=== PATIENT | male | born 1965 | race Caucasian/White ===

== ENCOUNTER 2020-02-27 13:06 | Emergency (ER) | payer MEDICARE, OTHER, SELFPAY ==
--- NOTE | ~2020-02-27 | XR_ITS ---
EXAMINATION: XR chest 2V DATE: 02/27/2020 13:48 INDICATION: Shortness of breath. TECHNIQUE: Frontal and lateral views of the chest were obtained on 3 radiographs. COMPARISON: Chest single view 06/20/2011 FINDINGS: The chest demonstrates clear lungs without pneumonia, pleural effusion, or pneumothorax. Th e heart size is normal. There are changes of anterior fusion procedure in cervical spine. IMPRESSION: 1. No acute cardiopulmonary disease. Reviewed, dictated and finalized at location A.
[2020-02-27 13:18] VITALS: BP 156/57; PULSE 59; PULSE 70; RESP 12; TEMP 37.1; O2SAT 97
--- NOTE | 2020-02-27 13:19 | ECG_ITS ---
Measurements Intervals [place] Rate: 68 P: 64 TN: 190 QRS: -38 QRSD: 154 T: 22 QT: 416 QTc: 442 Interpretive Statements SINUS RHYTHM LEFT AXIS DEVIATION RIGHT BUNDLE BRANCH BLOCK ABNORMAL ECG Electronically Signed On 02-27-2020 13:34:28 CDT by Aden Lanza D.O.
--- NOTE | 2020-02-27 13:23 | ED.SOB ---
HPI - SOB/Dyspnea General Chief Complaint: Shortness of Breath/Dyspnea Stated Complaint: SOB Time Seen by Provider: 02/27/20 13:08 Source: RN notes reviewed History of Present Illness HPI Narrative: Patient presents emergency department from home for shortness of breath. Patient states symptoms began approximately 3 weeks ago with shortness of breath. He states that he had been at [facility] last week and had a work-up that was negative that time he was to follow-up with his PCP today. Patient states he got to his PCPs office today and had placed a 95 mask on his face when he began to again feel short of breath. He states that the mask removed he is feeling better at this time. He denies any fevers or chills chest pain abdominal pain nausea vomiting or any other symptoms Related Data Home Medications Medication Instructions Recorded Confirmed amlodipine 02/27/20 atorvastatin 02/27/20 eletriptan mg 02/27/20 epinephrine 02/27/20 fexofenadine mg 02/27/20 furosemide 02/27/20 losartan 02/27/20 metformin mg PO 02/27/20 onabotulinumtoxinA 200 unit IM ONCE 02/27/20 02/27/20 pantoprazole PO 02/27/20 potassium chloride meq PO 02/27/20 sildenafil 50 mg PO DAILY PRN 02/27/20 02/27/20 sumatriptan succinate 4 mg SUBCUT ONCE 02/27/20 02/27/20 sumatriptan succinate SUBCUT 02/27/20 tizanidine mg 02/27/20 Allergies Allergy/AdvReac Type Severity Reaction Status Date / Time lactose Allergy Abdominal Verified 02/27/20 13:33 Pain sulfamethoxazole Allergy Unknown Verified 02/27/20 13:33 [From Bactrim] trimethoprim [From Bactrim] Allergy Unknown Verified 02/27/20 13:33 Review of Systems Review of Systems: Narrative: Gen.: Denies fevers or chills Eyes: Denies eye pain or visual change ENT: Denies congestion Respiratory: See HPI CV: Denies chest pain or palpitations GI: Denies abdominal pain nausea, emesis or diarrhea Musculoskeletal: Denies back pain or muscle pain Neuro: Denies numbness, tingling, weakness or focal weakness Skin: Denies rash Except as documented, all other systems reviewed and negative [facility] Past Medical History Medical History (Updated 02/27/20 @ 17:29 by John Olivarez DO) Hypertension Social History Social History (Updated 02/27/20 @ 13:24 by John Olivarez DO) Smoking status: Never smoker Gender identity (if verbalized by the patient): Male Exam Narrative: Exam Narrative: APPEARANCE: No acute distress, nontoxic, resting in bed EYES: EOMI HEENT: Normocephalic, atraumatic, OMM RESPIRATORY: No respiratory distress Clear to auscultation bilaterally with no rhonchi wheezing or rales. CARDIOVASCULAR: Regular rate and rhythm without murmurs rubs or gallops. ABDOMINAL: Soft, nontender, nondistended, no rebound or guarding MUSCULOSKELETAl: Moves all extremities. No clubbing, cyanosis or edema. NEURO: Awake and alert. Following commands, speech normal, no focal deficits SKIN:: Warm, dry. No rashes lesions or abrasions PSYCHIATRIC: Normal affect/mood, Course Course Emergency Course: Patient has had no shortness of breath while in ED Discussed with patient results of workup and diagnosis. Discussed need for follow-up with primary care, proper use of medication, and reasons to return to the emergency department. Patient understands and agrees to current treatment plan Vital Signs Vital signs: Vital Signs Temperature 98.7 F 02/27/20 13:18 Pulse Rate 70 02/27/20 13:18 Respiratory Rate 12 02/27/20 13:18 Blood Pressure 156/57 H 02/27/20 13:18 Pulse Oximetry 97 02/27/20 13:18 Temperature 98.7 F 02/27/20 13:18 Pulse Rate 59 L 02/27/20 15:34 Respiratory Rate 13 02/27/20 15:34 Blood Pressure 152/62 H 02/27/20 15:34 Pulse Oximetry 98 02/27/20 15:34 MDM - SOB/Dyspnea MDM Narrative Medical decision making narrative: Patient has dyspnea of unclear etiology. No wheezing on clinical exam. Low risk well score, PE is felt unlikely. No a
[2020-02-27 13:45] LABS: Basophils Absolute Auto 0.1 K/mm3 (0.0-0.1); Basophils Percent Auto 1.6 % (0.2-1.2); Eosinophils Absolute Auto 0.1 K/mm3 (0-0.3); Eosinophils Percent Auto 2.1 % (0-4.4); Hematocrit 42.9 % (42.0-52.0); Hemoglobin 14.9 g/dL (14.0-18.0); Immature Granulocyte Absolute 0.04 K/mm3 (0.00-0.031); Immature Granulocyte Percent A 0.9 % (0-0.5); Lymphocytes Absolute Auto 1.31 K/mm3 (0.9-3.2); Lymphocytes Percent Auto 29.8 % (18.3-44.2); Mean Corpuscular HGB Conc 34.7 g/dl (32-36); Mean Corpuscular Hemoglobin 29.2 pg (26-34); Mean Corpuscular Volume 84.1 fl (80-100); Mean Platelet Volume 12.2 fl (7.4-10.4); Monocytes Absolute Auto 0.3 K/mm3 (0.1-0.6); Monocytes Percent Auto 7.7 % (2.6-8.5); Neutrophils Absolute Auto 2.5 K/mm3 (1.3-6.7); Neutrophils Percent Auto 57.9 % (45.5-73.1); Platelet Count Result 199 k/mm3 (150-375); Red Cell Distribution Width 12.7 % (11.5-14.5); White Blood Count 4.4 K/mm3 (4.5-10.0)
[2020-02-27 13:55] LABS: Prothrombin Time 12.9 Seconds (11.1-14.7)
[2020-02-27 13:56] LABS: Blood Urea Nitrogen 14 mg/dL (9-20); Calcium 9.4 mg/dL (8.4-10.2); Carbon Dioxide 25 mmol/L (22-30); Chloride 103 mmol/L (98-107); Estimated Glomerular Filt Rate > 60; Glucose 307 mg/dL (75-110); Potassium 3.4 mmol/L (3.4-5.0); Sodium 139 mmol/L (137-145)
[2020-02-27 14:04] LABS: D Dimer 0.27 ug/mL (<0.48)
[2020-02-27 14:08] LABS: NT Pro B Type Natriuretic Pept 66 PG/ML (5-100); Troponin I 0.023 ng/mL (0.000-0.034)
[2020-02-27 15:34] VITALS: BP 152/62; PULSE 59; RESP 13; O2SAT 98
[2020-02-27 17:14] LABS: Troponin I 0.018 ng/mL (0.000-0.034)
== END 2020-02-27 17:39 | disposition home or self-care (01) ==
PROVIDERS: Emergency Provider Emergency Medicine; PCP Registered Nurse
DX: R06.00 Dyspnea, unspecified (principal); I10 Essential (primary) hypertension; I45.10 Unspecified right bundle-branch block
CPT/HCPCS: 36415; 71046; 80048; 83880; 84484; 85025; 85380; 85610; 85730; 93005; 99284